=== PATIENT | female | born 1945 | race Caucasian/White ===

== ENCOUNTER → 2016-08-09 | Outpatient (CLI) | payer OTHER ==
--- NOTE | 2016-08-09 11:57 | WOMENS IMAGING REPORT ---
EXAM DESCRIPTION: BILAT SCREENING MAMMO W/CAD COMPLETED DATE/TIME: 08/09/2016 10:30 am REASON FOR STUDY: Z12.31 ROUTINE SCREENING MAMMO Z12.31 ENCNTR SCREEN MAMMOGRAM FOR MALIGNANT NEOPL ASM OF MIKEY COMPARISON: Multiple since 2008 TECHNIQUE: Standard craniocaudal and mediolateral oblique views of each breast recorded using [employer] Mobile[employer] l acquisition. LIMITATIONS: None. FINDINGS: No masses, calcifications or architectural distortion. No areas of suspicion. Read with the assistance of CAD. .[facility] - R2 Cenova Version 1.3 .[facility] - R2 Cenova Version 1.3 .[facility] - R2 Cenova Version 2.4 .[facility] [place] R2 Cenova Version 2.4 .[facility] - R2 Call Center Director Version 9.2 BREAST DENSITY: a. The breasts are almost entirely fatty. BIRAD: 1 NEGATIVE RECOMMENDATION: ROUTINE SCREENING COMMENT: PATIENT NOTIFIED BY LETTER. The [employer] recommends an annual screening mammogram for women aged 40 years or over. Each patient will receive a reminder prior to the anniversary date of her mammogram. The [employer] (ACR) has developed recommendations for screening MRI of the breast s in certain patient populations, to be used in conjunction with mammography. Breast MRI surveillanc e may be appropriate for women with more than 20% lifetime risk of developing breast cancer as deter mined by genetic testing, significant family history of the disease, or history of mantle radiation f or Hodgkins Disease. ACR Practice Guidelines 2007. TECHNICAL DOCUMENTATION: FINDING NUMBER: (1) ASSESSMENT: (1) JOB ID: [id number] [employer]- All Rights Reserved
== END ==
LOC: WI 10:04
PROVIDERS: ATTEND Family Medicine
DX: Z12.31 Encounter for screening mammogram for malignant neoplasm of breast (principal)
CPT/HCPCS: 77067; G0202

== ENCOUNTER 2017-07-06 14:18 | Emergency (ER) | payer OTHER ==
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
[2017-07-06 14:56] LABS: ABSOLUTE EOSINOPHILS # (AUTO) 0.1 10^3/uL (0.0-0.6); ABSOLUTE MONOCYTES (AUTO) 0.6 10^3/uL (0.1-1.4); ABSOLUTE NEUT (AUTO) 8.2 10^3/uL (1.7-8.2); BASOPHILS % (AUTO) 0.4 % (0-2); EOSINOPHILS % (AUTO) 1.2 % (0-6); HEMATOCRIT 40.8 % (36.0-47.0); HEMOGLOBIN 13.9 g/dL (12.0-15.5); LYMPHOCYTES % (AUTO) 9.6 % (13-45); MEAN CORPUSCULAR HEMOGLOBIN 30.9 pg (27.0-33.4); MEAN CORPUSCULAR HGB CONC 33.9 g/dL (32.0-36.0); MEAN CORPUSCULAR VOLUME 91 fl (80-97); MONOCYTES % (AUTO) 5.7 % (3-13); PLATELET COUNT 188 10^3/uL (150-450); RED BLOOD COUNT 4.48 10^6/uL (3.72-5.28); RED CELL DISTRIBUTION WIDTH 13.3 % (11.5-14.0); SEGMENTED NEUTROPHILS % (AUTO) 83.1 % (42-78); TOTAL CELLS COUNTED % (AUTO) 100 %; WHITE BLOOD COUNT 9.9 10^3/uL (4.0-10.5)
[2017-07-06 15:14] LABS: ANION GAP 11 (5-19); BLOOD UREA NITROGEN 13 mg/dL (7-20); CALCIUM 9.1 mg/dL (8.4-10.2); CARBON DIOXIDE 29 mmol/L (22-30); CHLORIDE 102 mmol/L (98-107); GLUCOSE 141 mg/dL (75-110); POTASSIUM 4.2 mmol/L (3.6-5.0); SODIUM 141.5 mmol/L (137-145)
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
[2017-07-06] MEDS ORDERED: IBUPROFEN 600 MG TABLET PO ONE (16:24)
[2017-07-06] MEDS ORDERED: OXYCODONE HCL IR 5 MG TABLET PO ONE (16:24)
[2017-07-06 17:37] VITALS: BP 163/85
--- NOTE | 2017-07-08 12:09 | EKG REPORT ---
SEVERITY:- OTHERWISE NORMAL ECG - SINUS TACHYCARDIA : Confirmed by: Renae Alcantara MD 08-Jul-2017 12:08:55
== END 2017-07-06 17:10 | disposition home or self-care (01) ==
LOC: ER 14:18
DX: S30.1XXA Contusion of abdominal wall, initial encounter (principal); M79.604 Pain in right leg; R07.9 Chest pain, unspecified; M25.551 Pain in right hip; R00.0 Tachycardia, unspecified; V87.7XXA Person injured in collision between other specified motor vehicles (traffic), initial encounter
CPT/HCPCS: 36415; 71260; 74177; 80048; 85025; 93005; 93010; 99284

== ENCOUNTER → 2018-11-17 | Outpatient (CLI) | payer OTHER ==
--- NOTE | 2018-11-17 15:38 | RADIOLOGY REPORT (SQ) ---
EXAM DESCRIPTION: MRI LUMBAR SPINE WITHOUT COMPLETED DATE/TIME: 11/17/2018 3:15 pm REASON FOR STUDY: DORALGIA UNSPEC,SACRILITIS M54.9 DORSALGIA, UNSPECIFIED M45.1 ANKYLOSING SPONDYL ITIS OF [id number] REGIO COMPARISON: None. TECHNIQUE: Sagittal and Axial imaging includes T1, T2, STIR and gradient echo sequences. Coronal T2/ HASTE imaging. LIMITATIONS: None. FINDINGS: VISUALIZED UPPER ABDOMEN: Limited evaluation. No acute or suspicious findings suggested. SEGMENTATION: No transitional anatomy. The lowest well-developed disc space is labeled L5-S1. ALIGNMENT: Mild retrolisthesis at L2-3. Grade 1 anterolisthesis at L4-5. VERTEBRAE: Intact. BONE MARROW: Hemangiomas T11, T12 and L3 vertebral bodies. DISC SIGNAL: Multilevel disease with diminished signal. Considerable diminished height at L1-2 and L 2-3 as well. POSTERIOR ELEMENTS: Multilevel facet arthropathy. Degenerative overgrowth and other findings descri bed below. No pars defect. HARDWARE: None in the spine. CORD AND CONUS: Normal in size and signal intensity. Conus at the appropriate level. SOFT TISSUES: No aortic aneurysm seen. No bulky retroperitoneal adenopathy or mass. No paraspinal mas s or fluid. L1-L2: Broad disc bulge. Minimal facet hypertrophy. No high-grade stenosis, mild narrowing. L2-L3: Transverse dimension central canal narrowing is grossly moderate. Mild disc bulge. Moderate bilateral foraminal stenosis. L3-L4: Minimal disc bulging. Posterior ligament thickening and facet overgrowth with overall moderat e central stenosis and moderate bilateral foraminal stenosis. L4-L5: Posterior element overgrowth. Broad disc bulge. Moderate central narrowing. Moderate -marke d bilateral foraminal stenosis. L5-S1: Broad posterior protrusion indents the ventral thecal sac. Contact with both S1 nerve roots w ithout mass effect. There is facet hypertrophic overgrowth with prominent synovial cyst projecting i nto the dorsal spinal canal. This cyst measures up to 1.4 cm and contributes to relatively high-grad e focal stenosis at the L5 level. Moderate left foraminal stenosis. LOWER THORACIC: T11-10 disc disease without cord compression. SACRUM: Visualized upper sacrum intact. OTHER: No other significant findings. IMPRESSION: 1. Multilevel lumbar spondylosis. Spinal stenosis as above. This is generally up to moderate at L2- 3, L4-5. Focal high-grade central canal narrowing is present at the L5 level, predominantly do to a facet related synovial cyst projecting into the spinal canal. TECHNICAL DOCUMENTATION: JOB ID: [id number] [employer]- All Rights Reserved Reading location - IP/workstation name: [email or web address]
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
== END ==
LOC: RAD 14:00
PROVIDERS: ATTEND Family Medicine
DX: M54.9 Dorsalgia, unspecified (principal); M45.1 Ankylosing spondylitis of occipito-atlanto-axial region; M47.894 Other spondylosis, thoracic region; M48.061 Spinal stenosis, lumbar region without neurogenic claudication
CPT/HCPCS: 72146; 72148

== ENCOUNTER → 2019-06-24 | Outpatient (CLI) | payer OTHER | LOC: RAD 10:40 | PROVIDERS: ATTEND Internal Medicine Critical Care Medicine | DX: R91.1 Solitary pulmonary nodule (principal); R10.9 Unspecified abdominal pain | CPT/HCPCS: 71250 ==

== ENCOUNTER → 2019-12-03 | Outpatient (CLI) | payer OTHER ==
--- NOTE | 2019-12-03 13:56 | RADIOLOGY REPORT (SQ) ---
EXAM DESCRIPTION: CT CHEST WITHOUT IMAGES COMPLETED DATE/TIME: 12/03/2019 1:31 pm REASON FOR STUDY: R91.1 SOLITARY PULMONARY NODULE R91.1 SOLITARY PULMONARY NODULE COMPARISON: CT of the chest without contrast from 06/24/2019. TECHNIQUE: CT scan performed of the chest without intravenous contrast. Images reviewed with lung, soft tissue and bone windows. Reconstructed coronal and sagittal MPR images reviewed. All images st ored on PACS. All CT scanners at this facility use dose modulation, iterative reconstruction, and/or weight based d osing when appropriate to reduce radiation dose to as low as reasonably achievable (ALARA). [facility]: Dose Right [facility]: CareDose [facility]: Dose Right [facility]: Teradose 4D [facility]: Spiced Bits RADIATION DOSE: CT Rad equipment meets quality standard of care and radiation dose reduction techniq ues were employed. CTDIvol: 8.2 mGy. DLP: 303 mGy-cm. LIMITATIONS: No technical limitations. FINDINGS: LUNGS AND PLEURA: Unchanged chronic opacities in the lingula. The nodular opacities in th e right middle lobe are also unchanged. There is no new or enlarging pulmonary nodule. There is no acute consolidation, ground-glass opacification or pleural effusion. HILAR AND MEDIASTINAL STRUCTURES: Hiatal hernia. There is no mediastinal adenopathy or mass. HEART AND VASCULAR STRUCTURES: No aneurysm of the thoracic aorta. No cardiomegaly or pericardial eff usion. UPPER ABDOMEN: Status post cholecystectomy THYROID AND OTHER SOFT TISSUES: No adenopathy or mass. BONES: Vertebral hemangiomas within the T5, T7 and T11 vertebral bodies. HARDWARE: None in the chest. OTHER: No other findings. IMPRESSION: Stable nodular opacities in the right middle lobe. There is no new or enlarging pulmona ry nodule. TECHNICAL DOCUMENTATION: JOB ID: [id number] Quality ID # 436: Final reports with documentation of one or more dose reduction techniques (e.g., Au tomated exposure control, adjustment of the mA and/or kV according to patient size, use of iterative reconstruction technique) 2010 [employer]- All Rights Reserved Reading location - IP/workstation name: [email or web address]
== END ==
LOC: RAD 13:23
PROVIDERS: ATTEND Internal Medicine Critical Care Medicine
DX: R91.1 Solitary pulmonary nodule (principal); I10 Essential (primary) hypertension; E78.5 Hyperlipidemia, unspecified; R10.9 Unspecified abdominal pain; K21.9 Gastro-esophageal reflux disease without esophagitis
CPT/HCPCS: 71250

== ENCOUNTER → 2019-12-19 | Outpatient (CLI) | payer OTHER ==
--- NOTE | 2019-12-19 09:38 | WOMENS IMAGING REPORT ---
EXAM DESCRIPTION: BILAT SCREENING MAMMO W/CAD IMAGES COMPLETED DATE/TIME: 12/19/2019 9:10 am REASON FOR STUDY: Z12.31 SCREENING MAMMO Z12.31 ENCNTR SCREEN MAMMOGRAM FOR MALIGNANT NEOPLASM OF B RE COMPARISON: Multiple since 2008 EXAM PARAMETERS: Standard craniocaudal and mediolateral oblique views of each breast recorded using digital acquisition. Read with the assistance of CAD. .[facility] - [employer] Director Of Publications Version 9.2 LIMITATIONS: None. FINDINGS: No suspicious masses, suspicious calcifications or architectural distortion. No areas of c oncern. IMPRESSION: NEGATIVE MAMMOGRAM. BIRADS 1 BREAST DENSITY: a. The breasts are almost entirely fatty. BIRAD: ASSESSMENT: 1 NEGATIVE RECOMMENDATION: ROUTINE SCREENING COMMENT: The patient has been notified of the results by letter per MQSA requirements. Additional no tification policies are in place for contacting patient with suspicious or incomplete findings. Quality ID #225: The [employer] recommends an annual screening mammogram for women aged 40 years or over. This facility utilizes a reminder system to ensure that all patients receive reminder letters, and/or direct phone calls for appointments. This includes reminders for routine scr eening mammograms, diagnostic mammograms, or other Breast Imaging Interventions when appropriate. Th is patient will be placed in the appropriate reminder system. TECHNICAL DOCUMENTATION: FINDING NUMBER: (1) ASSESSMENT: (1) JOB ID: [id number] 2010 [employer]- All Rights Reserved Reading location - IP/workstation name: [email or web address]
== END ==
LOC: WI 08:15
PROVIDERS: ATTEND Family Medicine
DX: Z12.31 Encounter for screening mammogram for malignant neoplasm of breast (principal)
CPT/HCPCS: 77067